=== PATIENT | male | born 1945 | race Hispanic/Latino ===

== ENCOUNTER → 2017-07-25 | Outpatient (CLI) | payer OTHER, MEDICARE ==
[~2017-07-25] MED LIST: ASPI-1026 PO; EZET10TA26 PO; FAMO20TA8 PO; VITA1CAP85 PO
== END | disposition home or self-care (01) ==
LOC: RAH 09:03
PROVIDERS: ATTEND Internal Medicine Gastroenterology
DX: K80.20 Calculus of gallbladder without cholecystitis without obstruction (principal); R63.4 Abnormal weight loss; R83.1 Abnormal level of hormones in cerebrospinal fluid; R74.8 Abnormal levels of other serum enzymes
CPT/HCPCS: 71046; 76700

== ENCOUNTER 2017-07-29 08:05 | Day surgery (SDC) | payer OTHER, MEDICARE ==
[~2017-07-29] VITALS: Ht 172.7 cm; Wt 63.5 kg
[~2017-07-29 08:05] MED LIST changes: +SODIUM CHLORIDE 0.9% 1000ML 1,000 ML IV ONE
[2017-07-29 08:35] VITALS: BP 161/81
[2017-07-29] MEDS ORDERED: PROPOFOL 10 MG/ML 20ML VIAL IV ONE (10:36)
[2017-07-29 10:52] VITALS: BP 90/51
== END 2017-07-29 11:45 | disposition home or self-care (01) ==
LOC: DAH 08:05
PROVIDERS: ATTEND Internal Medicine Gastroenterology
DX: K22.2 Esophageal obstruction (principal); I10 Essential (primary) hypertension; E78.5 Hyperlipidemia, unspecified; Z86.73 Personal history of transient ischemic attack (TIA), and cerebral infarction without residual deficits
CPT/HCPCS: 43248; 93005; A4606; J2704; J7030

== ENCOUNTER 2019-05-15 09:08 | Day surgery (SDC) | payer MEDICARE ==
[2019-05-15] VITALS (10 sets, daily range): BP systolic 69–156; BP diastolic 38–83
[~2019-05-15 09:08] MED LIST changes: -EZET10TA26 PO; +EZET10TA48 PO
[2019-05-15] MEDS ORDERED: PROPOFOL 10 MG/ML 20ML VIAL IV ONE (10:23)
--- NOTE | 2019-05-15 10:33 | NUR ---
post received pt from gi after an usuccessfful peg placement due to patient had food in stomach,, patient connected to oxgyen at 100 % NRM, due to low oxgyen sat level 60-70% on room air once NRM applied 02 sat 99-100%, pt bp 77/41-80's, kan DEBORAH made aware. will continue to monitor. see vs sheet
--- NOTE | 2019-05-15 10:50 | NUR ---
dc report called to Esteban VALERIO at [facility], dc instructions given to him, to have patient come in am at 0800 to peform egd/peg tube since it was unable to be done today due to food in stomach, instructed to keep patient without solid food today after 1600, he verbalized understanding.
--- NOTE | 2019-05-15 11:20 | NUR ---
dc pt dc to [facility] via [place], accompanied by gas truck driver Igor. pt stable. awake and alert,no distress noted. pt back to baseline vs.
== END 2019-05-15 11:20 ==
LOC: DAH 09:08 → ENDO 09:08 → EDSTATUS 15:40
PROVIDERS: ATTEND Internal Medicine Gastroenterology
DX: R13.12 Dysphagia, oropharyngeal phase (principal); I10 Essential (primary) hypertension; K21.9 Gastro-esophageal reflux disease without esophagitis; Z79.82 Long term (current) use of aspirin; Z79.899 Other long term (current) drug therapy; E78.5 Hyperlipidemia, unspecified; Z86.73 Personal history of transient ischemic attack (TIA), and cerebral infarction without residual deficits
CPT/HCPCS: 43235; A4606; J2704; J7030

== ENCOUNTER 2019-05-18 10:13 | Day surgery (SDC) | payer MEDICARE ==
[2019-05-18] VITALS (13 sets, daily range): BP systolic 71–142; BP diastolic 39–71
[2019-05-18] MEDS ORDERED: PROPOFOL 10 MG/ML 20ML VIAL IV ONE ×2 (10:43→11:00)
[2019-05-18] MEDS ORDERED: SODIUM CHLORIDE 0.9% 1000ML 1,000 ML IV ONE (10:49)
[2019-05-18] MEDS ORDERED: CEFAZOLIN SODIUM 1 GM VIAL ONE (10:58)
--- NOTE | 2019-05-18 11:15 | NUR ---
Update Report given to Kayy Alex LVN from [facility] and [facility] [place].
== END 2019-05-18 12:20 | disposition home or self-care (01) ==
LOC: DAH 10:13 → ENDO 10:13
PROVIDERS: ATTEND Internal Medicine
DX: I69.391 Dysphagia following cerebral infarction (principal); K31.89 Other diseases of stomach and duodenum; Z79.899 Other long term (current) drug therapy; Z79.82 Long term (current) use of aspirin; I10 Essential (primary) hypertension; K21.9 Gastro-esophageal reflux disease without esophagitis; E78.2 Mixed hyperlipidemia; F10.21 Alcohol dependence, in remission; Z82.49 Family history of ischemic heart disease and other diseases of the circulatory system; Z83.3 Family history of diabetes mellitus
CPT/HCPCS: 43246; A4215; A4221; A4222; A4223; A4606; A4620; A4663; J0690; J2704 ×2; J7030 ×2